=== PATIENT | female | born 1970 | race Two or more races ===

== ENCOUNTER → 2018-10-11 | Outpatient (CLI) | payer OTHER ==
[2016-02-16 13:52] VITALS: BP 155/88
[~2018-10-11] MED LIST: MECL25TA3 PO
--- NOTE | 2018-10-11 12:07 | KCIC ---
EXAM: Right shoulder, 3 views. HISTORY: Pain. COMPARISON: None. FINDINGS: 3 views of the right shoulder obtained. There is calcification along the superior humeral head likely associated with the rotator cuff. There is minimal acromioclavicular degenerative subchondral cyst formation and spurring. This includes a tiny inferiorly directed distal clinical or spur and subacromial spur. There is a 5 mm lobulated radiodensity adjacent to the superior medial aspect of the scapula, likely due to overlying artifact or soft tissue calcification. IMPRESSION: 1. Calcification along the distal rotator cuff suggesting calcific tendinitis. 2. Minimal acromioclavicular osteoarthritis with tiny inferiorly directed spurs. Electronically signed by: Reny Montgomery MD (10/11/2018 12:04 PM) [facility]
== END | disposition home or self-care (01) ==
LOC: KCIC 11:27
PROVIDERS: ATTEND Nurse Practitioner
DX: M19.011 Primary osteoarthritis, right shoulder (principal)
CPT/HCPCS: 73030